=== PATIENT | female | born 1960 | race Caucasian/White ===

== ENCOUNTER → 2017-02-05 | Outpatient (CLI) | payer BC, OTHER ==
[2014-04-08 08:45] VITALS: BP 134/82
[~2017-02-05] MED LIST: BUPR300T4 PO; ESTR0.5T PO; LEVO137T3 PO; LORA0.5T PO; LORA10TA3 PO; MELA1TAB9 PO; MELO15TA23 PO; METF500T4 PO; OMEG1CAP6 PO; SIMV20TA3 PO; TRAM50TA PO
--- NOTE | 2017-02-06 09:00 | RAD ---
DATE: 02/05/2017 EXAM: MAMMO ERIN SCREENING BILATERAL HISTORY: Routine screening COMPARISON: 03/06/2015 This study was interpreted with the benefit of Computerized Aided Detection (CAD). The breast parenchyma shows scattered fibroglandular densities. Breast parenchyma level B. FINDINGS: 2-D and 3-D tomosynthesis imaging was performed in CC and MLO projections. No new or enlarging breast densities are seen. Numerous benign type calcifications are again noted in both breasts. No suspicious microcalcifications have developed. IMPRESSION: Stable mammograms without evidence of malignancy. BI-RADS CATEGORY: 2 BENIGN FINDING(S) RECOMMENDED FOLLOW-UP: 12M 12 MONTH FOLLOW-UP PQRS compliance statement: Patient information was entered into a reminder system with a target due date for the next mammogram. Mammography is a sensitive method for finding small breast cancers, but it does not detect them all and is not a substitute for careful clinical examination. A negative mammogram does not negate a clinically suspicious finding and should not result in delay in biopsying a clinically suspicious abnormality. "Our facility is accredited by the [employer] Mammography [employer]."
== END | disposition home or self-care (01) ==
LOC: MAMMO 07:55
PROVIDERS: ATTEND Family Medicine
DX: Z12.31 Encounter for screening mammogram for malignant neoplasm of breast (principal)
CPT/HCPCS: 77063; G0202; 77067

== ENCOUNTER → 2017-02-12 | Outpatient (CLI) | payer BC ==
[2014-04-08 08:45] VITALS: BP 134/82
[2017-02-12 13:44] LABS: FREE T4 0.99 ng/dL (0.76-1.46); THYROID STIM HORMONE (TSH) 2.993 uIU/mL (0.358-3.740)
== END | disposition home or self-care (01) ==
LOC: LAB 08:26
PROVIDERS: ATTEND Family Medicine
DX: E03.9 Hypothyroidism, unspecified (principal); E88.81 Metabolic syndrome and other insulin resistance; E78.2 Mixed hyperlipidemia
CPT/HCPCS: 36415; 80061; 83525; 84439; 84443; 84480

== ENCOUNTER → 2017-08-07 | Outpatient (CLI) | payer BC ==
[2014-04-08 08:45] VITALS: BP 134/82
[2017-08-07 10:37] LABS: BASO % 1 % (0-3); EOS # 0.3 x10^3/uL (0.0-0.7); EOS % 6 % (0-3); HEMATOCRIT 38.2 % (36.0-47.0); HEMOGLOBIN 12.6 g/dL (12.0-15.5); LYMPH # 1.5 x10^3/uL (1.0-4.8); LYMPH % 32 % (24-48); MEAN CORPUSCULAR HEMOGLOBIN 28 pg (25-35); MEAN CORPUSCULAR HGB CONC 33 g/dL (31-37); MEAN CORPUSCULAR VOLUME 86 fL (79-100); MONO # 0.5 x10^3/uL (0.0-1.1); MONO % 11 % (0-9); NEUT # 2.3 x10^3uL (1.8-7.7); NEUT % 50 % (31-73); PLATELET COUNT 323 x10^3/uL (140-400); RED BLOOD COUNT 4.43 x10^6/uL (3.50-5.40); WHITE BLOOD COUNT 4.7 x10^3/uL (4.0-11.0)
[2017-08-07 10:59] LABS: ALBUMIN 3.7 g/dL (3.4-5.0); ALBUMIN/GLOBULIN RATIO 0.9 (1.0-1.7); CALCIUM 9.4 mg/dL (8.5-10.1); CREATININE 0.7 mg/dL (0.6-1.0); GFR 86.2; POTASSIUM 4.1 mmol/L (3.5-5.1); TOTAL BILIRUBIN 0.2 mg/dL (0.2-1.0); TOTAL PROTEIN 7.9 g/dL (6.4-8.2)
[2017-08-08 01:08] LABS: IMMUNOGLOBULIN A <5 mg/dL (87-352); IMMUNOGLOBULIN G 1270 mg/dL (700-1600); IMMUNOGLOBULIN M 64 mg/dL (26-217)
[2017-08-12 12:09] LABS: IMMUNOGLUBULIN E <2 IU/mL (0-100)
== END | disposition home or self-care (01) ==
LOC: LAB 08:50
PROVIDERS: ATTEND Family Medicine
DX: R68.89 Other general symptoms and signs (principal); E78.2 Mixed hyperlipidemia; E03.9 Hypothyroidism, unspecified; R79.89 Other specified abnormal findings of blood chemistry
CPT/HCPCS: 36415; 80053; 82784; 85025

== ENCOUNTER → 2017-09-18 | Outpatient (CLI) | payer BC ==
[2014-04-08 08:45] VITALS: BP 134/82
[~2017-09-18] MED LIST changes: -METF500T4 PO; +METF500T5 PO
[2017-09-18 09:11] LABS: BASO % 1 % (0-3); EOS # 0.2 x10^3/uL (0.0-0.7); EOS % 2 % (0-3); HEMATOCRIT 37.3 % (36.0-47.0); HEMOGLOBIN 12.5 g/dL (12.0-15.5); LYMPH # 2.3 x10^3/uL (1.0-4.8); LYMPH % 31 % (24-48); MEAN CORPUSCULAR HEMOGLOBIN 28 pg (25-35); MEAN CORPUSCULAR HGB CONC 34 g/dL (31-37); MEAN CORPUSCULAR VOLUME 84 fL (79-100); MONO # 0.5 x10^3/uL (0.0-1.1); MONO % 6 % (0-9); NEUT # 4.4 x10^3uL (1.8-7.7); NEUT % 60 % (31-73); PLATELET COUNT 396 x10^3/uL (140-400); RED BLOOD COUNT 4.44 x10^6/uL (3.50-5.40); RED CELL DISTRIBUTION WIDTH 14.4 % (11.5-14.5); WHITE BLOOD COUNT 7.4 x10^3/uL (4.0-11.0)
[2017-09-18 09:18] LABS: CALCIUM 9.3 mg/dL (8.5-10.1); CREATININE 0.6 mg/dL (0.6-1.0); POTASSIUM 3.9 mmol/L (3.5-5.1); TOTAL BILIRUBIN 0.3 mg/dL (0.2-1.0); TOTAL PROTEIN 7.9 g/dL (6.4-8.2)
[2017-09-18 11:42] LABS: FREE T4 0.96 ng/dL (0.76-1.46); THYROID STIM HORMONE (TSH) 1.272 uIU/mL (0.358-3.740)
== END | disposition home or self-care (01) ==
LOC: LAB 08:29
PROVIDERS: ATTEND Family Medicine
DX: Z13.21 Encounter for screening for nutritional disorder (principal); Z13.228 Encounter for screening for other metabolic disorders; Z13.0 Encounter for screening for diseases of the blood and blood-forming organs and certain disorders involving the immune mechanism; Z13.29 Encounter for screening for other suspected endocrine disorder; E78.2 Mixed hyperlipidemia; E03.9 Hypothyroidism, unspecified; M06.9 Rheumatoid arthritis, unspecified
CPT/HCPCS: 36415; 80053; 80061; 84439; 84443; 84480; 85025

== ENCOUNTER → 2018-12-17 | Outpatient (CLI) | payer BC, OTHER ==
[2014-04-08 08:45] VITALS: BP 134/82
[~2018-12-17] MED LIST changes: +METF500T16 PO; -METF500T5 PO
[2018-12-17 09:33] LABS: BASO # 0.1 x10^3/uL (0.0-0.2); BASO % 1 % (0-3); EOS # 0.3 x10^3/uL (0.0-0.7); EOS % 4 % (0-3); HEMOGLOBIN 13.1 g/dL (12.0-15.5); LYMPH # 2.4 x10^3/uL (1.0-4.8); LYMPH % 33 % (24-48); MEAN CORPUSCULAR HEMOGLOBIN 28 pg (25-35); MEAN CORPUSCULAR HGB CONC 34 g/dL (31-37); MEAN CORPUSCULAR VOLUME 84 fL (79-100); MONO # 0.4 x10^3/uL (0.0-1.1); MONO % 6 % (0-9); NEUT # 4.1 x10^3uL (1.8-7.7); NEUT % 57 % (31-73); PLATELET COUNT 369 x10^3/uL (140-400); RED BLOOD COUNT 4.64 x10^6/uL (3.50-5.40); RED CELL DISTRIBUTION WIDTH 14.8 % (11.5-14.5); WHITE BLOOD COUNT 7.2 x10^3/uL (4.0-11.0)
[2018-12-17 09:39] LABS: CALCIUM 9.4 mg/dL (8.5-10.1); CREATININE 0.7 mg/dL (0.6-1.0); GFR 85.9; POTASSIUM 4.1 mmol/L (3.5-5.1); TOTAL BILIRUBIN 0.3 mg/dL (0.2-1.0)
[2018-12-17 13:09] LABS: FREE T4 0.98 ng/dL (0.76-1.46); THYROID STIM HORMONE (TSH) 0.673 uIU/mL (0.358-3.740)
[2018-12-17 23:06] LABS: HEMOGLOBIN A1C 6.1 % (4.8-5.6)
[2018-12-18 11:08] LABS: INSULIN LEVEL 13.8 uIU/mL (2.6-24.9)
== END | disposition home or self-care (01) ==
LOC: LAB 08:46
PROVIDERS: ATTEND Family Medicine
DX: Z13.0 Encounter for screening for diseases of the blood and blood-forming organs and certain disorders involving the immune mechanism (principal); Z13.29 Encounter for screening for other suspected endocrine disorder; Z13.21 Encounter for screening for nutritional disorder; Z13.228 Encounter for screening for other metabolic disorders; E78.2 Mixed hyperlipidemia; E88.81 Metabolic syndrome and other insulin resistance; E03.9 Hypothyroidism, unspecified; E88.1 Lipodystrophy, not elsewhere classified
CPT/HCPCS: 36415; 80053; 80061; 83036; 83525; 84439; 84443; 84480; 85025

== ENCOUNTER → 2019-12-22 | Outpatient (CLI) | payer BC ==
[2014-04-08 08:45] VITALS: BP 134/82
[~2019-12-22] MED LIST changes: -BUPR300T4 PO; +BUPR300T92 PO; +SIMV20TA18 PO; -SIMV20TA3 PO
--- NOTE | 2019-12-23 17:56 | RAD ---
EXAM: BILATERAL DIGITAL 3D SCREENING MAMMOGRAPHY. HISTORY: Routine mammographic screening. TECHNIQUE: Bilateral digital 3D and tomographic images were obtained in CC and MLO projections. Computer-aided detection was applied. COMPARISON: 02/05/2017. COMPOSITION: B. There are scattered areas of fibroglandular density. FINDINGS: There are no suspicious masses, microcalcifications or architectural distortion. The parenchymal pattern is stable. Scattered and coarse calcifications are benign. BI-RADS CATEGORY 2: Benign. RECOMMENDATION: 1. Routine screening mammography in one year. If mammography demonstrates dense breast tissue (heterogenously dense or extremely dense, category C or D), which could hide abnormalities, and if other risk factors for breast cancer have been identified, supplemental screening tests that may be suggested by the ordering physician may be of benefit. Dense breast tissue, in and of itself, is a relatively common condition. Therefore, this information is not provided to cause undue concern, but rather to raise awareness and to promote discussion with the referring physician regarding the presence of other risk factors, in addition to dense breast tissue. The results of this mammography examination is provided to the patient and referring physician. The patient should contact their referring physician if any questions or concerns exist regarding this report. PQRS compliance statement - Patient information was entered into a reminder system with a target due date for the next mammogram. "Our facility is accredited by the [employer] Mammography [employer]." Electronically signed by: Mahendra Hernandez MD (12/23/2019 5:53 PM) [id number]
== END | disposition home or self-care (01) ==
LOC: MAMMO 13:28
PROVIDERS: ATTEND Family Medicine
DX: Z12.31 Encounter for screening mammogram for malignant neoplasm of breast (principal)
CPT/HCPCS: 77063; 77067

== ENCOUNTER → 2020-04-11 | Outpatient (CLI) | payer BC ==
[2014-04-08 08:45] VITALS: BP 134/82
== END ==
LOC: LAB 14:00
PROVIDERS: ATTEND Nurse Anesthetist, Certified Registered
DX: Z01.818 Encounter for other preprocedural examination (principal); Z20.828 Contact with and (suspected) exposure to other viral communicable diseases
CPT/HCPCS: U0003

== ENCOUNTER → 2020-04-14 | Day surgery (SDC) | payer BC ==
[~2020-04-14] MED LIST changes: +ACETAMINOPHEN 325 MG TABLET PO PRN; +ALBUTEROL SULFATE 2.5 MG/3 ML NEBU. NEB PRN; +ATROPINE 0.5 MG/5 ML DISP.SYRIN. IV PRN; +IV RINGERS SOLUTION,LACTATED 1,000 ML IV SCH; +MIDAZOLAM HCL PF 2 MG/2 ML VIAL. IV PRN; +ONDANSETRON PF 4 MG/2 ML VIAL. IV PRN; +PHENOL ORAL SPRAY 177ML BOTTLE. MM PRN; +PROPOFOL 10,000 MCG/ML (20ML) VIAL IV ONE; +diphenhydrAMINE 50 MG/ML VIAL IV PRN
[2020-04-14 13:05] VITALS: BP 111/69
--- NOTE | 2020-04-19 14:09 | PATHOLOGY ---
[facility] Accession Number: [id number] . 01 Material submitted: . colon - SIGMOID POLYPS. Modifiers: sigmoid . 01 Clinical history: . SCREENING . 02 Diagnosis: Colon biopsies, sigmoid polyp x2: - Tubular adenomas. (JPM:nela; 04/19/2020) QMS 04/19/2020 1037 Local . 02 Comment: There is no high grade dysplasia or evidence of malignancy. JPM:nela; 04/19/2020) . 02 Electronically signed: . Luis Nowak MD, Pathologist NPI- [id number] . 01 Gross description: . The specimen is received in formalin, labeled "Maribell [place], sigmoid polyp". Received are four segments of pale maher soft tissue ranging in size from 0.3 to 0.6 cm in maximum dimensions. The specimen is submitted entirely in cassette A1. ([facility]; 04/18/2020) QA/QA 04/18/2020 1118 Local . 02 Pathologist provided ICD-10: D12.5 . 02 CPT . 434630 Specimen Comment: A courtesy copy of this report has been sent to [phone], [phone] Specimen Comment: [phone] Specimen Comment: Report sent to / DR WILSON Performed at: 01 [facility] [address], [place], [place] [id number] MD Ang Gray MD Phone: [phone] Performed at: 02 [facility] [address] [place], [place] [id number] MD Luis Nowak MD Phone: [phone]
== END | disposition home or self-care (01) ==
LOC: SURG 11:03
PROVIDERS: ATTEND Internal Medicine Gastroenterology
DX: Z12.11 Encounter for screening for malignant neoplasm of colon (principal); K64.8 Other hemorrhoids; D12.5 Benign neoplasm of sigmoid colon; I10 Essential (primary) hypertension; E78.2 Mixed hyperlipidemia; Z80.0 Family history of malignant neoplasm of digestive organs; Z86.010 Personal history of colon polyps; Z88.0 Allergy status to penicillin; Z79.899 Other long term (current) drug therapy; Z79.84 Long term (current) use of oral hypoglycemic drugs; E03.9 Hypothyroidism, unspecified; Z98.890 Other specified postprocedural states; M06.9 Rheumatoid arthritis, unspecified; Z90.710 Acquired absence of both cervix and uterus; F32.9 Major depressive disorder, single episode, unspecified; Z98.891 History of uterine scar from previous surgery; Z87.442 Personal history of urinary calculi
CPT/HCPCS: 45380; J2704; J7120

== ENCOUNTER → 2020-11-16 | Outpatient (CLI) | payer BC, OTHER ==
[2020-09-20 15:15] VITALS: BP 144/80
[~2020-11-16] MED LIST changes: -ACETAMINOPHEN 325 MG TABLET PO PRN; -ALBUTEROL SULFATE 2.5 MG/3 ML NEBU. NEB PRN; -ATROPINE 0.5 MG/5 ML DISP.SYRIN. IV PRN; -IV RINGERS SOLUTION,LACTATED 1,000 ML IV SCH; +LIOT5TAB4 PO; +MELA1TAB44 PO; -MELA1TAB9 PO; -MIDAZOLAM HCL PF 2 MG/2 ML VIAL. IV PRN; +OMEG100021 PO; -ONDANSETRON PF 4 MG/2 ML VIAL. IV PRN; -PHENOL ORAL SPRAY 177ML BOTTLE. MM PRN; -PROPOFOL 10,000 MCG/ML (20ML) VIAL IV ONE; -diphenhydrAMINE 50 MG/ML VIAL IV PRN
--- NOTE | 2020-11-16 16:32 | RAD ---
EXAMINATION: XR HAND_RIGHT 3 VIEWS CLINICAL HISTORY: 3RD 4TH DIGIT PAIN INTO METACARPAL. HX OF TRIGGER PT SX TECHNIQUE: XR HAND_RIGHT 3 VIEWS Number of Images/Views: 3 COMPARISON: None FINDINGS: Moderate degenerative changes first IP joint. Joint spaces and alignment otherwise relatively well ma intained. No acute fracture. No focal soft tissue swelling. IMPRESSION: No acute osseous abnormality. Electronically signed by: Octavio White DO (11/16/2020 4:29 PM) [id number]
== END ==
LOC: RAD 14:41
PROVIDERS: ATTEND Physician Assistant
DX: M19.041 Primary osteoarthritis, right hand (principal)
CPT/HCPCS: 73130

== ENCOUNTER → 2021-03-07 | Outpatient (CLI) | payer BC, OTHER ==
[2020-09-20 15:15] VITALS: BP 144/80
[2021-03-07 09:06] LABS: BASO # 0.1 x10^3/uL (0.0-0.2); BASO % 1 % (0-3); EOS # 0.2 x10^3/uL (0.0-0.7); EOS % 2 % (0-3); HEMATOCRIT 40.9 % (36.0-47.0); HEMOGLOBIN 13.8 g/dL (12.0-15.5); LYMPH # 2.3 x10^3/uL (1.0-4.8); LYMPH % 29 % (24-48); MEAN CORPUSCULAR HEMOGLOBIN 31 pg (25-35); MEAN CORPUSCULAR HGB CONC 34 g/dL (31-37); MEAN CORPUSCULAR VOLUME 91 fL (79-100); MONO # 0.4 x10^3/uL (0.0-1.1); MONO % 5 % (0-9); NEUT % 63 % (31-73); PLATELET COUNT 331 x10^3/uL (140-400); RED BLOOD COUNT 4.51 x10^6/uL (3.50-5.40); WHITE BLOOD COUNT 7.9 x10^3/uL (4.0-11.0)
[2021-03-07 09:15] LABS: ALBUMIN 4.2 g/dL (3.4-5.0); ALBUMIN/GLOBULIN RATIO 1.1 (1.0-1.7); CALCIUM 9.5 mg/dL (8.5-10.1); CREATININE 0.6 mg/dL (0.6-1.0); GFR 101.6; POTASSIUM 4.1 mmol/L (3.5-5.1); TOTAL BILIRUBIN 0.3 mg/dL (0.2-1.0); TOTAL PROTEIN 8.1 g/dL (6.4-8.2)
[2021-03-07 20:14] LABS: THYROID STIM HORMONE (TSH) 1.501 uIU/mL (0.358-3.740)
== END ==
LOC: LAB 08:25
PROVIDERS: ATTEND Family Medicine
DX: Z13.29 Encounter for screening for other suspected endocrine disorder (principal); R73.03 Prediabetes; E53.8 Deficiency of other specified B group vitamins; E03.9 Hypothyroidism, unspecified; E78.2 Mixed hyperlipidemia
CPT/HCPCS: 36415; 80053; 80061; 82607; 83036; 84443; 85025

== ENCOUNTER → 2021-08-15 | Outpatient (CLI) | payer BC, OTHER ==
[2020-09-20 15:15] VITALS: BP 144/80
--- NOTE | 2021-08-15 11:50 | RAD ---
INDICATION: 61 years of age asymptomatic female patient presents for screening mammography. No person al or family history of breast cancer. TECHNIQUE: Full field craniocaudal and mediolateral oblique images of both breasts were obtained usi ng digital technique with tomosynthesis and also analyzed with computer-aided detection software. COMPARISON: Prior mammographic imaging dating back to 02/05/2017. BREAST COMPOSITION: Category B: There are scattered fibroglandular densities. FINDINGS: No suspicious masses, microcalcifications or architectural distortion is present to suggest malignanc y in either breast. The visualized axillae are unremarkable. IMPRESSION: No mammographic evidence of malignancy. RECOMMENDATION: Annual screening mammography is recommended, unless clinically indicated sooner based on symptoms or change in physical exam. BIRADS 1: NEGATIVE This study was interpreted with the benefit of Computerized Aided Detection (CAD). Patient information is entered into the reminder system with a target due date for the next screening mammogram. Mammography is the most sensitive method for finding small breast cancers, but it does not detect the m all and is not a substitute for careful clinical examination. A negative mammogram does not negate a clinically suspicious finding and should not result in delay in biopsying a clinically suspicious a bnormality. "Our facility is accredited by the [employer] Mammography [employer]." Electronically signed by: Erik Bach DO (08/15/2021 11:48 AM) [id number]
== END ==
LOC: MAMMO 08:02
PROVIDERS: ATTEND Family Medicine
DX: Z12.31 Encounter for screening mammogram for malignant neoplasm of breast (principal)
CPT/HCPCS: 77063; 77067